=== PATIENT | male | born 1935 | race Caucasian/White ===

== ENCOUNTER 2016-08-02 06:06 | Day surgery (SDC) | payer MEDICARE ==
[2016-08-02] MEDS ORDERED: methylPREDNISolone ACETATE 80 MG/ML VIAL ONE (10:44)
[2016-08-02] MEDS ORDERED: LIDOCAINE 1% 10 ML VIAL INJ ONE (10:44)
[2016-08-02] MEDS ORDERED: SODIUM CHLORIDE 0.9% 10 ML VIAL ONE (10:44)
[2016-08-02] MEDS ORDERED: SODIUM BICARBONATE VIAL 50 MEQ/50 ML VIAL ONE (10:44)
[2016-08-02 13:00] VITALS: BP 123/77; TEMP 97.6; O2SAT 95
== END 2016-08-02 12:45 | disposition home or self-care (01) ==
LOC: AMB 06:06
PROVIDERS: ATTEND Anesthesiology Pain Medicine
DX: M54.5 Low back pain (principal); M51.16 Intervertebral disc disorders with radiculopathy, lumbar region; I25.10 Atherosclerotic heart disease of native coronary artery without angina pectoris; E11.9 Type 2 diabetes mellitus without complications; K21.9 Gastro-esophageal reflux disease without esophagitis; Z79.899 Other long term (current) drug therapy
CPT/HCPCS: 62323; 76000; J1030

== ENCOUNTER → 2016-08-16 | Outpatient (CLI) | payer MEDICARE | END | disposition home or self-care (01) | LOC: BFHH 10:02 | PROVIDERS: ATTEND Family Medicine | DX: E11.42 Type 2 diabetes mellitus with diabetic polyneuropathy (principal) ==

== ENCOUNTER → 2016-08-25 | Outpatient (CLI) | payer MEDICARE | END | disposition home or self-care (01) | LOC: GMAJ 17:31 | PROVIDERS: ATTEND Family Medicine | DX: I10 Essential (primary) hypertension (principal); E11.42 Type 2 diabetes mellitus with diabetic polyneuropathy; R42 Dizziness and giddiness ==

== ENCOUNTER → 2016-08-30 | Outpatient (CLI) | payer MEDICARE ==
--- NOTE | 2016-08-30 12:11 | CT ---
Study: CT of the Head. Indication: DIZZINES Technique: Axial CT images of the head were acquired without intravenous contrast. Comparison: None. Findings: No CT evidence of acute ischemia, acute hemorrhage, mass, mass effect, midline shift, or extra-axial fluid collection. Left frontal extra-axial space mildly prominent with the involved area measuring up to 20 mm AP by 45 mm transverse. This could reflect an underlying arachnoid cyst. Ventricles are normal in configuration without hydrocephalus. Patchy hypoattenuation of the periventricular and subcortical white matter noted. This is nonspecific but most consistent with chronic microvascular ischemic change. Global parenchymal volume loss and intracranial atherosclerosis noted as well. Paranasal sinuses are adequately aerated. Mastoid air cells are adequately aerated. Osseous structures and soft tissues are unremarkable. Impression: 1. No CT evidence of acute intracranial abnormality. 2. Senescent changes. 3. Prominence of the left anterior frontal subarachnoid space, possibly an arachnoid cyst. MRI brain with and without intravenous contrast could better evaluate as clinically indicated. Electronically signed by: Nikko Quintana MD 08/30/2016 12:10 PM [facility]
== END | disposition home or self-care (01) ==
LOC: CT 10:12
PROVIDERS: ATTEND Family Medicine
DX: R42 Dizziness and giddiness (principal)

== ENCOUNTER 2016-09-13 08:00 | Day surgery (SDC) | payer MEDICARE ==
[2016-09-13] MEDS ORDERED: LIDOCAINE 1% MPF 5 ML VIAL ONE ×2 (10:03→10:10)
[2016-09-13] MEDS ORDERED: SODIUM BICARBONATE VIAL 50 MEQ/50 ML VIAL ONE (10:03)
[2016-09-13] MEDS ORDERED: SODIUM CHLORIDE 0.9% 10 ML VIAL ONE (10:03)
[2016-09-13] MEDS ORDERED: methylPREDNISolone ACETATE 80 MG/ML VIAL ONE (10:03)
[2016-09-13 13:47] VITALS: O2SAT 94
[2016-09-13 15:11] VITALS: BP 121/74; TEMP 99.3
== END 2016-09-13 15:55 | disposition home or self-care (01) ==
LOC: AMB 08:00
PROVIDERS: ATTEND Anesthesiology Pain Medicine
DX: M51.16 Intervertebral disc disorders with radiculopathy, lumbar region (principal); Z79.899 Other long term (current) drug therapy
CPT/HCPCS: 62323; 76000; J1030